=== PATIENT | female | born 1965 | race Two or more races ===

== ENCOUNTER 2018-06-25 09:49 | Outpatient (CLI) | payer OTHER | END 2018-06-25 10:16 | disposition home or self-care (01) | LOC: MAMO-SONO 09:49 | DX: Z12.31 Encounter for screening mammogram for malignant neoplasm of breast (principal); N64.4 Mastodynia; N60.11 Diffuse cystic mastopathy of right breast; N64.89 Other specified disorders of breast ==

== ENCOUNTER 2018-09-14 07:30 | Outpatient (CLI) | payer OTHER | END 2018-09-14 07:32 | disposition home or self-care (01) | LOC: MAMO-SONO 07:30 | DX: R92.0 Mammographic microcalcification found on diagnostic imaging of breast (principal) ==

== ENCOUNTER 2019-08-29 13:28 | Outpatient (CLI) | payer OTHER | END 2019-08-29 13:31 | disposition home or self-care (01) | LOC: MAMO-SONO 13:28 | DX: Z12.31 Encounter for screening mammogram for malignant neoplasm of breast (principal); Z87.898 Personal history of other specified conditions; N60.11 Diffuse cystic mastopathy of right breast; N60.12 Diffuse cystic mastopathy of left breast ==

== ENCOUNTER 2020-12-23 08:09 | Outpatient (CLI) | payer OTHER | END 2020-12-23 08:22 | disposition home or self-care (01) | LOC: MAMO-SONO 08:09 | PROVIDERS: ATTEND Surgery | DX: N60.11 Diffuse cystic mastopathy of right breast (principal); N60.12 Diffuse cystic mastopathy of left breast ==